=== PATIENT | male | born 1960 ===

== ENCOUNTER 2016-07-05 15:02 | Emergency (ER) | payer MEDICARE, OTHER ==
[2016-07-05 15:02] VITALS: BMI 24.4
[2016-07-05] MEDS ORDERED: Naloxone 0.4 mg/ml Inj (Adult) IV ONE (15:38)
[2016-07-05 16:11] LABS: BASO % 0.2 % (0.0-2.0); EOS # 0.1 K/uL (0.0-0.7); EOS % 0.6 % (0.0-4.0); HEMATOCRIT 41.3 % (35.0-51.0); LYMPH # 0.6 K/uL (1.0-4.3); LYMPH % 3.9 % (20.0-40.0); MEAN CORPUSCULAR HEMOGLOBIN 27.8 pg (27.0-31.0); MEAN CORPUSCULAR HGB CONC 32.7 g/dL (33.0-37.0); MEAN PLATELET VOLUME 7.4 fL (7.2-11.7); MONO # 0.6 K/uL (0.0-0.8); MONO % 3.9 % (0.0-10.0); PLATELET COUNT 240 K/uL (130-400); WHITE BLOOD COUNT 15.9 K/uL (4.8-10.8)
[2016-07-05 16:15] LABS: ALB/GLOB RATIO 1.3 (1.0-2.1); ALCOHOL SERUM < 10 mg/dl (0-10); ALKALINE PHOSPHATASE 58 U/L (38-126); ALT/SGPT 40 U/L (21-72); AST/SGOT 36 U/L (17-59); BILIRUBIN,TOTAL 0.6 mg/dL (0.2-1.3); BLOOD UREA NITROGEN 22 mg/dL (9-20); CALCIUM 8.3 mg/dl (8.6-10.4); CARBON DIOXIDE 23 mmol/L (22-30); CHLORIDE 99 mmol/L (98-107); GFR AFRICAN-AMERICAN > 60; GLUCOSE,RANDOM 222 mg/dL (75-110); POTASSIUM 4.1 mmol/L (3.6-5.2); SODIUM 135 mmol/L (132-148); TOTAL PROTEIN 7.3 g/dL (6.3-8.3)
[2016-07-05] MEDS ORDERED: Naloxone 0.4 mg/ml Inj (Adult) ONE (16:18)
--- NOTE | 2016-07-05 16:20 | CT ---
PROCEDURE: CT HEAD WITHOUT CONTRAST. HISTORY: Overdose COMPARISON: 02/20/2015 TECHNIQUE: Axial computed tomography images were obtained through the head/brain without intravenous contrast. Radiation dose: Total exam DLP = 1307 mGy-cm. This CT exam was performed using one or more of the following dose reduction techniques: Automated exposure control, adjustment of the mA and/or kV according to patient size, and/or use of iterative reconstruction technique. FINDINGS: HEMORRHAGE: No intracranial hemorrhage. BRAIN: No mass effect or edema. No atrophy or chronic microvascular ischemic changes. VENTRICLES: Unremarkable. No hydrocephalus. CALVARIUM: Unremarkable. PARANASAL SINUSES: There currently less pronounced paranasal sinus inflammatory changes. Leftward nasal septal deviation noted MASTOID AIR CELLS: Unremarkable as visualized. No inflammatory changes. OTHER FINDINGS: None. IMPRESSION: No interval intracranial hemorrhage or mass effect
--- NOTE | 2016-07-05 16:42 | RAD ---
HISTORY: Overdosed COMPARISON: Chest x-ray performed 06/19/13 TECHNIQUE: Chest, one view. FINDINGS: LUNGS: No focal consolidation. Please note that chest x-ray has limited sensitivity for the detection of pulmonary masses. PLEURA: No significant pleural effusion identified. No definite pneumothorax . CARDIOVASCULAR: The cardiomediastinal silhouette appears within normal limits of size. OSSEOUS STRUCTURES: Acromioclavicular arthropathy. VISUALIZED UPPER ABDOMEN: Unremarkable. OTHER FINDINGS: None. IMPRESSION: No focal consolidation, significant pleural effusion, or definite pneumothorax identified.
--- NOTE | 2016-07-05 16:57 | C.PDOC ---
History Of Present Illness A 56 y/o male with a Hx of schizophrenia, brought in by EMS found being asleep in a park [place]. Pt had been given Narcan by EMS and became immediately arousable. Pt denies alcohol, drug abuse, suicidal or homicidal ideation, or any complaints at this time. Pt notes being homeless. later pt admits to intranasal heroine abuse. Time Seen by Provider: 07/05/16 15:19 Chief Complaint (Nursing): Substance Abuse History Per: Patient History/Exam Limitations: no limitations Onset/Duration Of Symptoms: Hrs Current Symptoms Are (Timing): Still Present Suicide/Self Injury Attempted (Context): None Modifying Factor(s): None Severity: Mild Associated Symptoms: denies: Suicidal Thoughts, Suicidal Plan Additional History Per: Patient Past Medical History Reviewed: Historical Data, Nursing Documentation, Vital Signs Vital Signs: Last Vital Signs Temp 97.5 F L 07/05/16 15:15 Pulse 66 07/05/16 17:00 Resp 14 07/05/16 17:00 BP 97/60 L 07/05/16 17:25 Pulse Ox 98 07/05/16 17:37 - Medical History PMH: Anxiety, Arthritis, Back Problems, Bipolar Disorder, Depression, HTN, Paranoia, Schizophrenia Denies: Diabetes, Hepatitis, HIV, Chronic Kidney Disease, Seizures, Sexually Transmitted Disease - [facility] Procedures INDIVID PSYCHOTHERAP NEC (10/27/14) OTHER GROUP THERAPY (04/28/14) PSYCHIA INTERV/EVAL NEC (09/12/13) PSYCHIAT DRUG THERAP NEC (11/10/13) Family History: States: Unknown Family Hx - Social History Hx Tobacco Use: Yes Hx Alcohol Use: Yes (DENIED) Hx Substance Use: No (DENIED) - Immunization History Hx Tetanus Toxoid Vaccination: No Hx Influenza Vaccination: No Hx Pneumococcal Vaccination: Yes Review Of Systems Except As Marked, All Systems Reviewed And Found Negative. Constitutional: Negative for: Other (Alcohol or narcotic use) Psych: Negative for: Suicidal ideation Physical Exam - Physical Exam Appears: Non-toxic, No Acute Distress, Other (Hypersomnolent. No trauma) Skin: Warm, Dry Head: Atraumatic, Normacephalic Eye(s): bilateral: Other (Pinpoint pupils) Cardiovascular: Rhythm Regular, No Murmur Respiratory: Normal Breath Sounds, No Rales, No Rhonchi, No Wheezing Neurological/Psych: No Other (No focal deficit) ED Course And Treatment - Laboratory Results Result Diagrams: 07/05/16 15:51 07/05/16 15:51 Lab Interpretation: Abnormal (mild leukocytosis, tox + cocaine/opiates.) ECG: Interpreted By Me ECG Rhythm: Sinus Rhythm ECG Interpretation: Normal Rate From EC O2 Sat by Pulse Oximetry: 98 (RA) Pulse Ox Interpretation: Normal - Radiology CXR: Interpreted by Me CXR Interpretation: Yes: No Acute Disease - Other Rad head CT X-Ray: Interpreted by Me, Read By Radiologist (neg) Reevaluation Time: 17:35 Reassessment Condition: Improved Critical Care Time - Critical Care Note Total Time (in mins): 90 Documented critical care: time excludes all time spent performing seperately billable procedures. Medical Decision Making Medical Decision Making: Plans: -EKG -Narcan -IV fluids -Blood labs -Reassess and disposition 1600: Narcan IV was given to Pt and he became noticeably more arousable though nauseated and vomiting. Zofran and IV NS ordered 1700: nausea treated, admits to intranasal heroine abuse. Denies IVDA mild leukocytosis of ? etiology- prob related to vomiting. no reasonable source of infection noted. no IVDA, no fevers. Disposition Doctor Will See Patient In The: Office Counseled Patient/Family Regarding: Studies Performed, Diagnosis - Disposition Disposition: HOME/ ROUTINE Disposition Time: 17:36 Condition: GOOD - Clinical Impression Clinical Impression: Heroin abuse - Scribe Statement The provider has reviewed the documentation as recorded by the Scribe Geni pratt All medical record entries made by the Danikaibsteve were at my direction and personally dictated by me. I have reviewed the chart and agree that the record accurately reflects my personal performance of the history, physical exam, medical decision making, and the department course for this patient. I have also personally directed, reviewed, and agree with the discharge instructions and disposition.
[2016-07-05] MEDS ORDERED: Sodium Chloride 0.9% 1,000 ML IV ONE (16:59)
[2016-07-05] MEDS ORDERED: Sodium Chloride 0.9% 1,000 ML ONE (17:01)
[2016-07-05 18:02] LABS: EOSINOPHIL 1 % (0-4); NEUTROPHIL 77 % (50-75); TOTAL CELLS COUNTED 100
[2016-07-05 18:26] VITALS: BP 100/61; PULSE 68; RESP 18; TEMP 98.2; O2SAT 96
--- NOTE | 2016-07-09 11:38 | CARD ---
APPROVED REPORT EKG Measurement Heart [id number] <Conclusion> Normal sinus rhythm Normal ECG
== END 2016-07-05 18:00 | disposition home or self-care (01) ==
LOC: C.ER 15:02
DX: F11.10 Opioid abuse, uncomplicated (principal)
CPT/HCPCS: 70450; 71010; 80053; 82948; 85025; 93005; 96361; 96374; 96375; 99285; G0480; J2310; J2405; J7040

== ENCOUNTER 2018-03-02 22:32 | Inpatient (IN) | payer MEDICARE, OTHER ==
[2018-03-02 22:33] VITALS: BMI 24.4
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
[2018-03-02 23:28] LABS: BASO # 0.1 K/uL (0.0-0.2); BASO % 0.7 % (0.0-2.0); EOS # 0.3 K/uL (0.0-0.7); EOS % 3.1 % (0.0-4.0); LYMPH # 1.6 K/uL (1.0-4.3); MEAN CELL VOLUME 87.3 fL (80.0-94.0); MEAN CORPUSCULAR HEMOGLOBIN 30.2 pg (27.0-31.0); MEAN CORPUSCULAR HGB CONC 34.5 g/dL (33.0-37.0); MEAN PLATELET VOLUME 6.6 fL (7.2-11.7); MONO # 0.8 K/uL (0.0-0.8); MONO % 8.7 % (0.0-10.0); NEUT # 6.7 K/uL (1.8-7.0); NEUT % 70.5 % (50.0-75.0); RBC 4.64 Mil/uL (4.40-5.90); RED CELL DISTRIBUTION WIDTH 13.1 % (11.5-14.5); WHITE BLOOD COUNT 9.5 K/uL (4.8-10.8)
[2018-03-02 23:39] LABS: URINE BILIRUBIN NEGATIVE (NEGATIVE); URINE BLOOD NEGATIVE (NEGATIVE); URINE CLARITY Clear (Clear); URINE COLOR Yellow (YELLOW); URINE GLUCOSE (UA) NORMAL (Normal); URINE LEUKOCYTE ESTERASE NEG Leu/uL (Negative); URINE PROTEIN NEGATIVE (NEGATIVE)
[2018-03-02 23:42] LABS: ALB/GLOB RATIO 1.3 (1.0-2.1); ALBUMIN 4.3 g/dL (3.5-5.0); ALT/SGPT 35 U/L (21-72); AST/SGOT 41 U/L (17-59); BLOOD UREA NITROGEN 18 mg/dL (9-20); CALCIUM 8.9 mg/dl (8.6-10.4); GFR NON-AFRICAN AMERICAN > 60
[2018-03-02 23:58] LABS: BARBITURATES, UR NEGATIVE (NEGATIVE); BENZODIAZEPINES, UR NEGATIVE (NEGATIVE); OPIATES, UR NEGATIVE (NEGATIVE); PHENCYCLIDINE, UR NEGATIVE (NEGATIVE)
--- NOTE | 2018-03-03 02:50 | PCM.BM ---
<James Cortez - Last Filed: 03/03/18 02:47> Treatment Plan Problems - Problems identified on initial assessmt Altered Thought Process Date Initiated: 03/03/18 Time Initiated: 01:35 Assessment reference: NA Status: Active Auditory Hallucinations Date Initiated: 03/03/18 Time Initiated: 01:35 Assessment reference: NA Status: Active Treatment assets and liabiliti Patient Assests: cooperative, ADL independent, negotiates basic needs Patient Liabilities: live alone - Milieu Protocol Maintain good personal hygiene: daily Encourage regular showers, daily Remind patient to perform daily oral care, daily Assist patient to perform ADL's Conduct patient checks and document Observation sheet: Q15 minutes Maintain personal safety: every shift Educate patient to report safety concerns to staff, every shift Monitor environment for contraband/sharps Medication safety: Monitor for expected outcome, potential side effects: every shift, Assess barriers to learning: every shift, Assess readiness for medication education: every shift <Chrissie Madison - Last Filed: 03/03/18 11:28> - Diagnosis (1) Schizophrenia Status: Acute Interventions: 03/03/18 11:28 * Assess/adjust medications daily and /or as needed * See patient on an individual basis 7x/week to assess status of hallucinations * Discuss risks, benefits, side effects and alternatives of medications * <Molly Brown - Last Filed: 03/03/18 13:47> Family Contact Family involvement: Famliy/SO not involved - Goals for Treatment Patient goals for treatment: "I don't know." Discharge/Continuing Care - Education Needs Education Needs: Patient Medication, Patient Coping Skills - Discharge Discharge Criteria: Tolerates medication w/o severe side effects, Reduction of target symptoms Discharge to:: Home - Treatment Team Participation Discussed with Family/SO: No Was Patient/Family/SO present at Treatment Team Meeting: Yes
--- NOTE | 2018-03-03 09:51 | PCM.PSYCH ---
Initial Psychiatric Evaluation - Initial Psychiatric Evaluation Type of Admission: Voluntary Legal Status: Capacity Chief Complaint (in patient's own words): I was hearing voices.' History of Present Illness and Precipitating Events: This is a 58 years old male, who was escorted to the ED by the ambulance in a disorganized and internally preoccupied state. Patient has a history of multiple inpatient psychiatric hospitalizations. As pe r the hospital record, he was discharged from [facility] almost 3 years ago. Patient appeared very disorganized and internally preoccupied throughout the interview. He remained a poor historian. He was superficially cooperative but guarded about the details. He appeared disheveled and unkempt. When asked what brought him to the hospital, patient started making bizarre statements that I was born in [place], they are trying to kill me, Frankenstein..... He continued to mumble. Patient appeared very delusional paranoid. As per the staff, since last night, he remained disorganized and was found responding to internal stimuli. Toxicology is positive for marijuana. However patient denies any drinking or any drugs. PMH: None reported Current Medications: Active Medications Generic Name Dose Route Start Last Admin Trade Name Freq PRN Reason Stop Dose Admin Benztropine Mesylate 1 mg 03/03/18 10:00 Cogentin PO BID BRITTANY Haloperidol 5 mg 03/03/18 10:00 Haldol PO BID BRITTANY Influenza Virus Vaccine 60 mcg 03/05/18 10:00 Flucelvax Quad [id number] Syr IM 03/05/18 10:01 .ONCE ONE Past Psychiatric History - Past Psychiatric History Previous Treatment History: Inpatient Pertinent Medical Hx (Current Medical&Sleep Prob, Allergies): Allergies Allergy/AdvReac Type Severity Reaction Status Date / Time No Known Allergies Allergy Verified 06/01/15 18:35 Benztropine [Benztropine Mesylate] 2 mg PO BID 09/07/15 Haloperidol [Haldol] 5 mg PO BID 09/07/15 Naloxone HCl [Narcan] 4 mg NS ONCE PRN #1 spray 07/05/16 Review of Systems - Review of Systems All systems: reviewed and no additional remarkable complaints except - Psychiatric Psychiatric: Anxiety, Auditory Hallucinations, Hallucinations, Irritability, Paranoia Mental Status Examination - Personal Presentation Personal Presentation: Looks stated age - Affect Affect: Broad - Motor Activity Motor Activity: Psychomotor Agitation - Reliability in Providing Information Reliability in Providing Information: Poor, due to alteration in thoughts, Poor, due to altered mood - Speech Speech: Disorganized - Mood Mood: Depressed, Anxious - Formal Thought Process Formal Thought Process: Hallucinations, Delusions, Paranoia, Loosening of associations - Hallucinations/Delusions Hallucinations: Visual, Auditory Delusions: Persecution - Obsessions/Compulsions Obsessions: No Compulsions: No - Cognitive Functions Orientation: Person, Place, Situation, Time Sensorium: Alert Attention/Concentration: Attentive Abstract Thinking: [place] Estimate of Intelligence: Below average Judgement: Imparied, as evidence by: Poor judgement, Imparied, as evidence by: Lack of insight into illness - Risk Risk: Diminished functioning - Limitations Limitations: Living alone DSM 5 DX - DSM 5 DSM 5 Diagnosis: Schizoaffective disorder bipolar type - Recommended/Plan of Treatment Treatment Recommendations and Plan of Treatment: Schizoaffective disorder bipolar type CBT Psychoeducation Supportive therapy and group therapy Haldol 5 mg p.o. twice daily Cogentin 1 mg p.o. twice daily Trazodone 50 mg p.o. nightly
[2018-03-04] MEDS: guaiFENesin DM 200 mg-20 mg/10 ml UD PO PRN (02:44)
[2018-03-04 06:53] VITALS: O2SAT 96
--- NOTE | 2018-03-04 12:04 | PCM.PYCHPN ---
Psychiatric Progress Note - Psychiatric Progress Note Patient seen today, length of contact: 15 min Patient Chief Complaint: I was hearing voices.' Problems Identified/Issues Discussed: patient was seen and evaluated, chart reviewed and discussed with staff. Patient remained disorganized and internally preoccupied. At times he responds to the internal stimuli. He still appears paranoid and delusional. Per staff he remained calm, cooperative and redirectable yesterday. He has started taking medications but he needs more time to stabilize. Psychotherapy was given. Medication Change: Yes Medical Record Reviewed: Yes Mental Status Examination - Cognitive Function Orientation: Person, Place, Situation, Time Memory: Intact Attention: Poor Concentration: Poor Association: Loose Fund of Knowledge: Poor - Mood Mood: Depressed, Anxious - Affect Affect: Broad - Formal Thought Process Formal Thought Process: Hallucinations, Delusions, Paranoia, Loosening of associations - Suicidal Ideation Suicidal Ideation: No - Homicidal Ideation Homicidal Ideation: No Goal/Treatment Plan - Goal/Treatment Plan Need for Continued Stay: Severe depression anxiety, Severe functional impairment Progress Toward Problem(s) and Goals/Treatment Plan: Schizoaffective disorder bipolar type CBT Psychoeducation Supportive therapy and group therapy Haldol 5 mg p.o. twice daily Cogentin 1 mg p.o. twice daily Trazodone 50 mg p.o. nightly
[2018-03-05] MEDS ORDERED: Influenza Vaccine 60 mcg/0.5 mL SYR (4YR UP) IM ONE (10:00)
--- NOTE | 2018-03-05 12:58 | PCM.PYCHPN ---
Psychiatric Progress Note - Psychiatric Progress Note Patient seen today, length of contact: 15 min Patient Chief Complaint: I am feeling little better.' Problems Identified/Issues Discussed: patient was seen and evaluated, chart reviewed and discussed with staff. As per staff, patient appears little better than before. Patient reports some improvement in his paranoia and he appears more organized and less internally preoccupied than before. He still appears somewhat paranoid and delusional. Per staff he remained calm, cooperative and redirectable yesterday. He is taking medications but denies any side effects. Symptoms are improving gradually and he needs more time to stabilize. Psychotherapy was given. Medication Change: Yes Medical Record Reviewed: Yes Mental Status Examination - Cognitive Function Orientation: Person, Place, Situation, Time Memory: Intact Attention: WNL Concentration: WNL Association: Loose Fund of Knowledge: Poor - Mood Mood: Depressed, Anxious - Affect Affect: Broad - Formal Thought Process Formal Thought Process: Hallucinations, Delusions, Paranoia, Loosening of as sociations - Suicidal Ideation Suicidal Ideation: No - Homicidal Ideation Homicidal Ideation: No Goal/Treatment Plan - Goal/Treatment Plan Need for Continued Stay: Severe depression anxiety, Severe functional impairment Progress Toward Problem(s) and Goals/Treatment Plan: Schizoaffective disorder bipolar type CBT Psychoeducation Supportive therapy and group therapy Haldol 5 mg p.o. daily Haldol 10 mg p.o. nightly Cogentin 1 mg p.o. twice daily Trazodone 50 mg p.o. nightly
[2018-03-08] MEDS: guaiFENesin DM 200 mg-20 mg/10 ml UD PO PRN (18:40)
--- NOTE | 2018-03-09 23:09 | PCM.PYCHPN ---
Psychiatric Progress Note - Psychiatric Progress Note Patient seen today, length of contact: 15 min Medication Change: Yes Medical Record Reviewed: Yes Mental Status Examination - Cognitive Function Orientation: Person, Place, Situation, Time Memory: Intact Attention: WNL Concentration: WNL Association: Loose Fund of Knowledge: Poor - Mood Mood: Depressed, Anxious - Affect Affect: Broad - Formal Thought Process Formal Thought Process: Hallucinations, Delusions, Paranoia, Loosening of associations - Suicidal Ideation Suicidal Ideation: No - Homicidal Ideation Homicidal Ideation: No Goal/Treatment Plan - Goal/Treatment Plan Need for Continued Stay: Severe depression anxiety, Severe functional impairment
[2018-03-10 06:06] VITALS: BP 116/73; PULSE 70; RESP 20; TEMP 97.7
--- NOTE | 2018-03-10 10:02 | PCM.PYCHDC ---
Mental Status Examination - Mental Status Examination Orientation: Person, Place, Situation, Time Memory: Intact Mood: Neutral Affect: Constricted Speech: Soft Attention: WNL Concentration: WNL Association: WNL Fund of Knowledge: WNL Formal Thought Process: No Impairment Description of patient's judgement and insight: good, fair Psychotic Thoughts and Behaviors: denies any AVH Suicidal Ideation: No Current Homicidal Ideation?: No Discharge Summary - Discharge Note Reason for Hospitalization: This is a 58 years old male, who was escorted to the ED by the ambulance in a disorganized and internally preoccupied state. Patient has a history of multiple inpatient psychiatric hospitalizations. As per the hospital record, he was discharged from [facility] almost 3 years ago. Patient appeared very disorganized and internally preoccupied throughout the interview. He remained a poor historian. He was superficially cooperative but guarded about the details. He appeared disheveled and unkempt. When asked what brought him to the hospital, patient started making bizarre statements that I was born [place], they are trying to kill me, [place]..... He continued to mumble. Patient appeared very delusional paranoid. As per the staff, since last night, he remained disorganized and was found responding to internal stimuli. Toxicology is positive for marijuana. However patient denies any drinking or any drugs. Consultations:: List each consultation separately and include: 1. Reason for request. 2. Findings. 3. Follow-up Summary of Hospital Course include:: 1. Description of specific treatment plan utilized for patients during their course of treatmen. 2. Summarize the time- course for resolution of acute symptoms and/or regressed behaviors. 3. Describe issues identified and worked on during hospitalization. 4. Describe medication utilized. 5. Describe medical problems identified and treated. 6. Reassessment of suicide risk Summary of Hospital Course: This is a 58 years old male, who was escorted to the ED by the ambulance in a disorganized and internally preoccupied state. Patient has a history of multiple inpatient psychiatric hospitalizations. As per the hospital record, he was discharged from [facility] almost 3 years ago. Patient appeared very disorganized and internally preoccupied throughout the interview. He remained a poor historian. He was superficially cooperative but guarded about the details. He appeared disheveled and unkempt. When asked what brought him to the hospital, patient started making bizarre statements that I was born in [place], they are trying to kill me, [place]..... He continued to mumble. Patient appeared very delusional paranoid. As per the staff, since last night, he remained disorganized and was found responding to internal stimuli. Toxicology is positive for marijuana. However patient denies any drinking or any drugs. PMH: None reported - Diagnosis (1) Schizophrenia Current Visit: Yes Status: Acute - Final Diagnosis (DSM 5) Condition upon Discharge: STABLE DSM 5: Schizoaffective disorder bipolar type Disposition: HOME/ ROUTINE Follow-up Treatment Plan: Schizoaffective disorder bipolar type CBT Psychoeducation Supportive therapy and group therapy Haldol 5 mg p.o. daily Haldol 10 mg p.o. nightly Cogentin 1 mg p.o. twice daily Trazodone 50 mg p.o. nightly Prescriptions/Medication Reconciliation: Benztropine [Cogentin] 1 mg PO BID #60 tab Gabapentin [Neurontin] 100 mg PO BID #60 cap Haloperidol [Haldol] 10 mg PO BID #60 tab traZODone [Desyrel] 50 mg PO HS PRN #30 tab PRN Reason: Insomnia - Smoking Cessation Smoking Cessation Medication prescribed: No - Antipsychotic Medications Pt discharged on 2 or more routine antipsychotic medications: No
== END 2018-03-10 13:07 | disposition home or self-care (01) | DRG 885 ==
LOC: C.ER 22:32 → C.5E 03-03 00:52
PROC: GZ3ZZZZ Medication Management (ICD-10-PCS; principal; 2018-03-03)
PROC: GZHZZZZ Group Psychotherapy (ICD-10-PCS; 2018-03-03)
PROC: GZ56ZZZ Individual Psychotherapy, Supportive (ICD-10-PCS; 2018-03-03)
DX: F25.0 Schizoaffective disorder, bipolar type (principal); I10 Essential (primary) hypertension; F17.210 Nicotine dependence, cigarettes, uncomplicated

== ENCOUNTER 2018-06-11 19:51 | Inpatient (IN) | payer MEDICARE, MEDICAID ==
[2018-06-11 19:51] VITALS: BMI 24.4
--- NOTE | 2018-06-11 20:57 | C.PDOC ---
History Of Present Illness 58 year old male presents to the ED with no specific complaints. When asked patient states he is here "for X-Ray". Patient actively talking to himself while in the ED. Patient denies any medical complaints at this time. Chief Complaint (Nursing): Headache History Per: Patient History/Exam Limitations: no limitations Current Symptoms Are (Timing): Gone Preceeding Symptoms: None Recent travel outside of the [place]: No Additional History Per: Patient Past Medical History Reviewed: Historical Data, Nursing Documentation, Vital Signs Vital Signs: Last Vital Signs Temp 97.9 F 06/11/18 20:18 Pulse 70 06/11/18 20:18 Resp 14 06/11/18 20:18 BP 119/76 06/11/18 20:18 Pulse Ox 99 06/11/18 20:18 - Medical History PMH: Anxiety, Arthritis (Denied upon admission to .), Back Problems, Bipol ar Disorder, Depression (Reports history of depression), HTN (Denies upon admission to .), Paranoia, Schizophrenia Denies: Diabetes, Hepatitis, HIV, Chronic Kidney Disease, Seizures, Sexually Transmitted Disease Surgical History: No Surg Hx - [facility] Procedures GROUP PSYCHOTHERAPY (03/03/18) INDIVID PSYCHOTHERAP NEC (10/27/14) INDIVIDUAL PSYCHOTHERAPY, SUPPORTIVE (03/03/18) MEDICATION MANAGEMENT (03/03/18) OTHER GROUP THERAPY (04/28/14) PSYCHIA INTERV/EVAL NEC (09/12/13) PSYCHIAT DRUG THERAP NEC (11/10/13) Family History: States: Unknown Family Hx - Social History Hx Tobacco Use: Yes Hx Alcohol Use: Yes (Patient denied alcohol history) Hx Substance Use: No - Immunization History Hx Tetanus Toxoid Vaccination: No Hx Influenza Vaccination: No Hx Pneumococcal Vaccination: Yes Review Of Systems Constitutional: Negative for: Fever, Chills Cardiovascular: Negative for: Chest Pain Respiratory: Negative for: Shortness of Breath Gastrointestinal: Negative for: Nausea, Vomiting, Abdominal Pain Skin: Negative for: Rash Neurological: Negative for: Weakness, Numbness Psych: Negative for: Depression, Suicidal ideation Physical Exam - Physical Exam Appears: Non-toxic, No Acute Distress, Other (bizarre affect) Skin: Normal Color, Warm, Dry Head: Atraumatic, Normacephalic Eye(s): bilateral: Normal Inspection Neck: Normal ROM, Supple Chest: Symmetrical Cardiovascular: Rhythm Regular Respiratory: Normal Breath Sounds, No Rales, No Rhonchi, No Wheezing Gastrointestinal/Abdominal: Soft, No Tenderness, No Guarding, No Rebound Extremity: Normal ROM, No Tenderness, No Swelling Neurological/Psych: Oriented x3, Normal Speech, Normal Cognition Gait: Steady ED Course And Treatment - Laboratory Results Result Diagrams: 06/11/18 21:09 06/11/18 21:09 O2 Sat by Pulse Oximetry: 99 (ON RA) Pulse Ox Interpretation: Normal Medical Decision Making Medical Decision Making: Plan: * LAbs * Ua Disposition Discussed With DrThien: Radha Abel Counseled Patient/Family Regarding: Diagnosis - Disposition Disposition: HOSPITALIZED Disposition Time: 00:00 Condition: STABLE Forms: [facility] (Korean) - POA Present On Arrival: None - Clinical Impression Clinical Impression: Schizophrenia, Cannabis abuse - Scribe Statement The provider has reviewed the documentation as recorded by the Scribe Brandon Betancourt All medical record entries made by the Scribe were at my direction and personally dictated by me. I have reviewed the chart and agree that the record accurately reflects my personal performance of the history, physical exam, medical decision making, and the department course for this patient. I have also personally directed, reviewed, and agree with the discharge instructions and disposition.
[2018-06-11 21:16] LABS: BASO # 0.1 K/uL (0.0-0.2); BASO % 0.7 % (0.0-2.0); EOS # 0.3 K/uL (0.0-0.7); EOS % 3.4 % (0.0-4.0); HEMOGLOBIN 14.6 g/dL (12.0-18.0); LYMPH # 1.5 K/uL (1.0-4.3); LYMPH % 19.7 % (20.0-40.0); MEAN CELL VOLUME 86.8 fL (80.0-94.0); MEAN CORPUSCULAR HEMOGLOBIN 29.3 pg (27.0-31.0); MEAN CORPUSCULAR HGB CONC 33.7 g/dL (33.0-37.0); MEAN PLATELET VOLUME 6.7 fL (7.2-11.7); MONO # 0.5 K/uL (0.0-0.8); MONO % 7.1 % (0.0-10.0); NEUT # 5.2 K/uL (1.8-7.0); NEUT % 69.1 % (50.0-75.0); RBC 4.99 Mil/uL (4.40-5.90); RED CELL DISTRIBUTION WIDTH 13.4 % (11.5-14.5); WHITE BLOOD COUNT 7.5 K/uL (4.8-10.8)
[2018-06-11 21:18] LABS: SQUAMOUS EPITHIAL < 1 /hpf (0-5); URINE BACTERIA RARE (<OCC); URINE BILIRUBIN NEGATIVE (NEGATIVE); URINE BLOOD NEGATIVE (NEGATIVE); URINE CLARITY Clear (Clear); URINE COLOR Yellow (YELLOW); URINE GLUCOSE (UA) NORMAL (Normal); URINE LEUKOCYTE ESTERASE NEG Leu/uL (Negative); URINE PROTEIN NEGATIVE (NEGATIVE)
[2018-06-11 21:44] LABS: ALB/GLOB RATIO 1.3 (1.0-2.1); ALBUMIN 4.3 g/dL (3.5-5.0); ALT/SGPT 30 U/L (21-72); AST/SGOT 37 U/L (17-59); BLOOD UREA NITROGEN 20 mg/dL (9-20); CALCIUM 9.3 mg/dl (8.6-10.4); GFR NON-AFRICAN AMERICAN > 60
[2018-06-11 21:53] LABS: BARBITURATES, UR NEGATIVE (NEGATIVE); BENZODIAZEPINES, UR NEGATIVE (NEGATIVE); OPIATES, UR NEGATIVE (NEGATIVE); PHENCYCLIDINE, UR NEGATIVE (NEGATIVE)
[2018-06-12 00:01] VITALS: O2SAT 99
--- NOTE | 2018-06-12 02:25 | PCM.BM ---
<James Cortez - Last Filed: 06/12/18 02:22> Treatment Plan Problems - Problems identified on initial assessmt Auditory Hallucinations Date Initiated: 06/12/18 Time Initiated: 01:10 Assessment reference: NA Status: Active Altered Thought Process Date Initiated: 06/12/18 Time Initiated: 01:10 Assessment reference: NA Status: Active Treatment assets and liabiliti Patient Assests: adapts well, ADL independent, negotiates basic needs Patient Liabilities: substance abuse (Marijuana) - Milieu Protocol Maintain good personal hygiene: daily Encourage regular showers, daily Remind patient to perform daily oral care, daily Assist patient to perform ADL's Conduct patient checks and document Observation sheet: Q15 minutes Maintain personal safety: every shift Educate patient to report safety concerns to staff, every shift Monitor environment for contraband/sharps Medication safety: Monitor for expected outcome, potential side effects: every shift, Assess barriers to learning: every shift, Assess readiness for medication education: every shift <Alicia Joshi - Last Filed: 06/13/18 13:56> Family Contact Family involvement: Patient does not wish Family/SO involvement Family contact: Patient declines to allow family contact at present - Goals for Treatment Patient goals for treatment: "I want to go back to my doctor." Discharge/Continuing Care - Education Needs Education Needs: Patient Medication, Patient Diagnosis/Disease Process, Patient Coping Skills, Patient Placement options, Patient Community resources - Discharge Discharge Criteria: Free of Suicidal thoughts, Normal sleep pattern, Ability to care for self, No longer exhibiting s/s of withdrawal, Reduction of target symptoms Discharge to:: Home - Treatment Team Participation Discussed with Family/SO: No Was Patient/Family/SO present at Treatment Team Meeting: Yes <Alonzo Garzon - Last Filed: 06/17/18 17:26> - Diagnosis (1) Schizophrenia Status: Acute Interventions: 06/17/18 17:23 * Assess/adjust medications daily and /or as needed * See patient on an individual basis 7x/week to assess level of manic behaviors and stability * Discuss risks, benefits, side effects and alternatives of medication (2) Cannabis withdrawal Status: Acute Interventions: 06/17/18 17:25 * Assess 7x/week regarding severity of withdrawal * Educate regarding risks, benefits, side effects and alternatives of medications * Use Motivational Interviewing for abstinence * Use CBT for relapse prevention * Medication management for withdrawal symptoms * Encourage medication assisted treatment (3) Cannabis use disorder, severe, dependence Status: Acute Interventions: 06/17/18 17:25 * Assess 7x/week regarding severity of withdrawal * Educate regarding risks, benefits, side effects and alternatives of medications * Use Motivational Interviewing for abstinence * Use CBT for relapse prevention * Medication management for withdrawal symptoms * Encourage medication assisted treatment
--- NOTE | 2018-06-12 17:03 | PCM.PSYCH ---
Initial Psychiatric Evaluation - Initial Psychiatric Evaluation Type of Admission: Voluntary Legal Status: Capacity Chief Complaint (in patient's own words): I need x-rays for my head. It is hurting for last 4 days. History of Present Illness and Precipitating Events: Patient is a 58 years old, male with history of schizophrenia, noncompliant with treatment was admitted due to disorganized and bizarre behavior. Patient has history of multiple inpatient psychiatric hospitalizations. Patient appeared very disorganized and internally preoccupied throughout the interview. He is a poor historian. He was superficially cooperative but guarded about the details. He appeared disheveled and unkempt. When asked what brought him to the hospital, patient started making bizarre statements thatI need x-ray for my head. It is hurting for last 4 days. I also need operation on my back. Patient appeared very delusional & paranoid. As per the staff, patient remained disorganized and was found responding to internal stimuli. Toxicology is positive for Cannabis. Patient reports smoking 10 cigarettes daily. Refused to take nicotine patch. Patient was born in [place], moved to [facility] at 6 years of age. Has high school graduation. On disability. Lives alone. Never and has one grownup son. Current Medications: Active Medications Generic Name Dose Route Start Last Admin Trade Name Freq PRN Reason Stop Dose Admin Benztropine Mesylate 0.5 mg 06/12/18 10:00 06/12/18 09:05 Cogentin PO 0.5 mg BID BRITTANY Administration Gabapentin 100 mg 06/12/18 18:00 Neurontin PO BID BRITTANY Haloperidol 5 mg 06/12/18 10:00 06/12/18 09:05 Haldol PO 5 mg BID BRITTANY Administration Haloperidol 5 mg 06/12/18 07:20 06/12/18 07:25 Haldol PO 5 mg Q6 PRN Administration Agitation Pneumococcal Polyvalent Vaccine 0.5 ml 06/15/18 10:00 Pneumovax 23 Vaccine IM 06/15/18 10:01 .ONCE ONE Trazodone HCl 50 mg 06/12/18 01:30 06/12/18 01:35 Desyrel PO 50 mg HS BRITTANY Administration Past Psychiatric History - Past Psychiatric History Previous Treatment History: Inpatient At [facility]: [facility], [facility] History of Abuse: None reported History of ETOH/Drug Use: See HPI History of Family Illness: None reported Pertinent Medical Hx (Current Medical&Sleep Prob, Allergies): Allergies Allergy/AdvReac Type Severity Reaction Status Date / Time No Known Allergies Allergy Verified 06/11/18 20:20 Benztropine [Cogentin] 1 mg PO BID #60 tab 03/10/18 Haloperidol [Haldol] 10 mg PO BID #60 tab 03/10/18 traZODone [Desyrel] 50 mg PO HS PRN #30 tab 03/10/18 Review of Systems - Psychiatric Psychiatric: As Per HPI, Depression, Hallucinations, Paranoia, Other Mental Status Examination - Personal Presentation Personal Presentation: Looks stated age - Affect Affect: Blunted - Motor Activity Motor Activity: Psychomotor Retardation - Reliability in Providing Information Reliability in Providing Information: Poor, due to alteration in thoughts - Speech Speech: Relevant - Mood Mood: Depressed - Formal Thought Process Formal Thought Process: Paranoia, Loosening of associations, Flight of ideas - Hallucinations/Delusions Hallucinations: Other (Internally preoccupied) - Cognitive Functions Orientation: Person, Place, Time Sensorium: Alert Attention/Concentration: Attentive Estimate of Intelligence: Below average Judgement: Intact, as evidence by: Insight regarding need for hospitalization Memory: Recent imparied as evidence by:Inability to complete 3/3 object recall, Remote impaired as evidenced by: Inability to recall historical events - Risk Risk: Diminished functioning - Strength & Assets Inventory Strength & Assets Inventory: Other - Limitations Limitations: Living alone DSM 5 DX - DSM 5 DSM 5 Diagnosis: Schizophrenia. Cannabis withdrawal. Cannabis use disorder severe. - Recommended/Plan of Treatment Treatment Recommendations and Plan of Treatment: Patient education. Supportive therapy. Will start his discharge medications including Haldol. Other PRN medications. Projected ELOS: 8-10 days - Smoking Cessation Smoking Cessation Initiated: No Reason for not providing: Patient refused
--- NOTE | 2018-06-13 22:28 | PCM.PYCHPN ---
Psychiatric Progress Note - Psychiatric Progress Note Patient seen today, length of contact: 15 minutes Patient Chief Complaint: Feeling little better, but still I need x-rays for my head. Problems Identified/Issues Discussed: Patient seen, chart reviewed, case discussed with the staff. Patient is related to illness and treatment were discussed with the patient and staff. Patient was evaluated with the team. Reported compliant with treatment with no adverse effects. Tolerating treatment very well. Reported feeling little better. Mood reported as okay. Affect appropriate, blunted affect. Patient was little curlier but still disorganized disheveled and bizarre. Aftercare discussed with the patient. Patient needs more time for stabilization. Patient denied any suicidal or homicidal ideation at the time of evaluation. Medical Problems: None reported Diagnostic Results: Reviewed Medication Change: No Medical Record Reviewed: Yes Mental Status Examination - Cognitive Function Orientation: Person, Place, Time Memory: Intact Attention: WNL Concentration: WNL Association: Loose Fund of Knowledge: Poor Decription of patient's judgement and insights: Fair - Mood Mood: Depressed - Affect Affect: Blunted - Speech Speech: Appropriate - Formal Thought Process Formal Thought Process: Paranoia, Loosening of associations, Flight of ideas - Suicidal Ideation Suicidal Ideation: No - Homicidal Ideation Homicidal Ideation: No Goal/Treatment Plan - Goal/Treatment Plan Need for Continued Stay: Remain at risks for inpatient hospitalization, Discharge may exacerbated symptoms, Severe functional impairment Progress Toward Problem(s) and Goals/Treatment Plan: Patient education. Supportive therapy. CBT for relapse prevention. [place] for abstinence. Will start his discharge medications including Haldol. Other PRN medications. Estimated Date of D/C: 06/20/18 - Smoking Cessation Smoking Cessation Initiated: No
--- NOTE | 2018-06-14 23:20 | PCM.PYCHPN ---
Psychiatric Progress Note - Psychiatric Progress Note Patient seen today, length of contact: 15 min Patient Chief Complaint: "I'm tired" Problems Identified/Issues Discussed: The pt is seen, chart reviewed, case discussed with staff. The pt is compliant with medications and reports no side-effects. Symptoms are improving but needs more time to stabilize. Pt isolates self a lot. He is irate Support given, psycho-education provided. Medication Change: Yes (meds change daily) Medical Record Reviewed: Yes Mental Status Examination - Cognitive Function Orientation: Person, Place, Situation, Time Memory: Intact Attention: Poor Concentration: Poor Association: WNL Fund of Knowledge: Poor - Mood Mood: Depressed - Affect Affect: Blunted - Speech Speech: Appropriate - Formal Thought Process Formal Thought Process: Paranoia, Loosening of associations, Flight of ideas - Suicidal Ideation Suicidal Ideation: No - Homicidal Ideation Homicidal Ideation: No Goal/Treatment Plan - Goal/Treatment Plan Need for Continued Stay: Discharge may exacerbated symptoms, Severe functional impairment Progress Toward Problem(s) and Goals/Treatment Plan: Continue medications Support and psychoeducation daily Attend groups and activities daily After care planning by LIDIA
[2018-06-15] MEDS ORDERED: Pneumococcal 23-Valent Vaccine IM ONE (10:00)
[2018-06-15] MEDS: Pantoprazole 40 mg EC Tab PO SCH (14:26)
[2018-06-16] MEDS: Pantoprazole 40 mg EC Tab PO SCH (09:34)
--- NOTE | 2018-06-16 12:33 | PCM.PYCHPN ---
Psychiatric Progress Note - Psychiatric Progress Note Patient seen today, length of contact: 15 minutes Patient Chief Complaint: I am feeling little better. Can you order x-rays for my head and right arm. Problems Identified/Issues Discussed: Patient seen, chart reviewed, case discussed with the staff. Patient is related to illness and treatment were discussed with the patient and staff. Patient was evaluated with the team. Reported compliant with treatment with no adverse effects. Tolerating treatment very well. Reported feeling little better. Mood reported as okay. Affect inappropriate, blunted affect. Patient was little clearer but still disorganized, disheveled and bizarre. Staff reported that patient was found talking to someone. Discussed with patient about this issue. Patient reported that the spirits are bothering him all the time and he talks to them. Patient still convinced that there is something wrong with his head and right arm and is requesting for x-rays. Will increase the dose of Haldol to 10 mg twice a day. Aftercare discussed with the patient. Patient needs more time for stabilization. Patient denied any suicidal or homicidal ideation at the time of evaluation. Medical Problems: None reported Diagnostic Results: Reviewed DSM 5 Symptoms Update: Some improvement with treatment. Medication Change: Yes (Dose of Haldol increased to 10 mg twice a day.) Medical Record Reviewed: Yes Mental Status Examination - Cognitive Function Orientation: Person, Place, Time Memory: Intact Attention: WNL Concentration: WNL Association: Loose Fund of Knowledge: Poor Decription of patient's judgement and insights: Fair - Mood Mood: Depressed - Affect Affect: Blunted - Speech Speech: Appropriate - Formal Thought Process Formal Thought Process: Hallucinations, Delusions, Loosening of associations, Flight of ideas - Suicidal Ideation Suicidal Ideation: No - Homicidal Ideation Homicidal Ideation: No Goal/Treatment Plan - Goal/Treatment Plan Need for Continued Stay: Remain at risks for inpatient hospitalization, Discharge may exacerbated symptoms, Severe functional impairment Progress Toward Problem(s) and Goals/Treatment Plan: Patient education. Supportive therapy. CBT for relapse prevention. [place] for abstinence. Will increase the dose of Haldol to 10 mg twice a day. Continue rest of the treatment as before. Estimated Date of D/C: 06/20/18 - Smoking Cessation Smoking Cessation Initiated: No
[2018-06-17] MEDS: Pantoprazole 40 mg EC Tab PO SCH (09:18)
--- NOTE | 2018-06-17 13:15 | PCM.PYCHPN ---
Psychiatric Progress Note - Psychiatric Progress Note Patient seen today, length of contact: 15 minutes Patient Chief Complaint: I am feeling little better. Can you order x-rays for my head and right arm. Problems Identified/Issues Discussed: Patient seen, chart reviewed, case discussed with the staff. Patient is related to illness and treatment were discussed with the patient and staff. Patient was evaluated with the team. Reported compliant with treatment with no adverse effects. Tolerating treatment very well. Reported feeling little better. Mood reported as okay. Affect inappropriate, blunted affect. Patient's thought process was little Clearer but still patient was asking for [place] for his head and arm. After increasing the dose of Haldol, patient reported feeling better. Aftercare discussed with the patient. Patient needs more time for stabilization. Patient denied any suicidal or homicidal ideation at the time of evaluation. Medical Problems: None reported Diagnostic Results: Reviewed DSM 5 Symptoms Update: Improving with treatment Medication Change: No Medical Record Reviewed: Yes Mental Status Examination - Cognitive Function Orientation: Person, Place, Time Memory: Intact Attention: WNL Concentration: WNL Association: WNL Fund of Knowledge: WNL Decription of patient's judgement and insights: Fair - Mood Mood: Depressed (Less than before.) - Affect Affect: Depressed - Speech Speech: Appropriate - Formal Thought Process Formal Thought Process: Loosening of associations - Suicidal Ideation Suicidal Ideation: No - Homicidal Ideation Homicidal Ideation: No Goal/Treatment Plan - Goal/Treatment Plan Need for Continued Stay: Remain at risks for inpatient hospitalization, Discharge may exacerbated symptoms, Severe functional impairment Progress Toward Problem(s) and Goals/Treatment Plan: Patient education. Supportive therapy. CBT for relapse prevention. [place] for abstinence. Continue treatment as before. Patient wants to have follow-up with his private psychiatrist. Estimated Date of D/C: 06/20/18 - Smoking Cessation Smoking Cessation Initiated: No
[2018-06-18] MEDS: Pantoprazole 40 mg EC Tab PO SCH (09:06)
--- NOTE | 2018-06-18 16:21 | PCM.PYCHPN ---
Psychiatric Progress Note - Psychiatric Progress Note Patient seen today, length of contact: 15 minutes Patient Chief Complaint: I am feeling better. Can you order x-rays for my head and right arm. Problems Identified/Issues Discussed: Patient seen, chart reviewed, case discussed with the staff. Patient is related to illness and treatment were discussed with the patient and staff. Patient was evaluated with the team. Reported compliant with treatment with no adverse effects. Tolerating treatment very well. Reported feeling better. Patient's thought process was little clearer but still patient was fixated for his headache and right arm surgery and was requesting for x-ray. Discussed with patient this issue in detail. Patient has small lipoma on his back. Will refer the patient to medicine after discharge from the patient. Mood reported as okay. Affect inappropriate, blunted affect. Aftercare discussed with the patient. Patient needs more time for stabilization. Patient denied any suicidal or homicidal ideation at the time of evaluation. Medical Problems: None reported Diagnostic Results: Reviewed DSM 5 Symptoms Update: Improving with treatment. Medication Change: No Medical Record Reviewed: Yes Mental Status Examination - Cognitive Function Orientation: Person, Place, Time Memory: Intact Attention: WNL Concentration: WNL Association: WNL Fund of Knowledge: [facility] Decription of patient's judgement and insights: Fair - Mood Mood: Depressed (Less than before.) - Affect Affect: Depressed - Speech Speech: Appropriate - Formal Thought Process Formal Thought Process: Loosening of associations - Suicidal Ideation Suicidal Ideation: No - Homicidal Ideation Homicidal Ideation: No Goal/Treatment Plan - Goal/Treatment Plan Need for Continued Stay: Remain at risks for inpatient hospitalization, Discharge may exacerbated symptoms, Severe functional impairment Progress Toward Problem(s) and Goals/Treatment Plan: Patient education. Supportive therapy. CBT for relapse prevention. [place] for abstinence. Continue treatment as before. Patient wants to have follow-up with his private psychiatrist. Estimated Date of D/C: 06/20/18 - Smoking Cessation Smoking Cessation Initiated: No
[2018-06-19] MEDS: Pantoprazole 40 mg EC Tab PO SCH (09:15)
--- NOTE | 2018-06-19 21:28 | PCM.PYCHPN ---
Psychiatric Progress Note - Psychiatric Progress Note Patient seen today, length of contact: 15 minutes Patient Chief Complaint: I am feeling better. Can you order x-rays for my head and right arm. Problems Identified/Issues Discussed: Patient seen, chart reviewed, case discussed with the staff. Patient is related to illness and treatment were discussed with the patient and staff. Patient was evaluated with the team. Reported compliant with treatment with no adverse effects. Tolerating treatment very well. Reported feeling better. Patient's thought process was clearer. Mood reported as okay. Affect appropriate. Aftercare discussed with the patient. Patient needs more time for stabilization. Patient denied any suicidal or homicidal ideation at the time of evaluation. Medical Problems: None reported Diagnostic Results: Reviewed DSM 5 Symptoms Update: Some improvement with treatment. Medication Change: No Medical Record Reviewed: Yes Mental Status Examination - Cognitive Function Orientation: Person, Place, Time Memory: Intact Attention: WNL Concentration: WNL Association: WNL Fund of Knowledge: WN Decription of patient's judgement and insights: Fair - Mood Mood: Depressed (Less than before.) - Affect Affect: Depressed - Speech Speech: Appropriate - Formal Thought Process Formal Thought Process: Loosening of associations - Suicidal Ideation Suicidal Ideation: No - Homicidal Ideation Homicidal Ideation: No Goal/Treatment Plan - Goal/Treatment Plan Need for Continued Stay: Remain at risks for inpatient hospitalization, Discharge may exacerbated symptoms, Severe functional impairment Progress Toward Problem(s) and Goals/Treatment Plan: Patient education. Supportive therapy. CBT for relapse prevention. [place] for abstinence. Continue treatment as before. Patient wants to have follow-up with his private psychiatrist. Estimated Date of D/C: 06/20/18 - Smoking Cessation Smoking Cessation Initiated: No
[2018-06-20 07:11] VITALS: BP 104/61; PULSE 60; RESP 18; TEMP 97.8
[2018-06-20] MEDS: Pantoprazole 40 mg EC Tab PO SCH (09:49)
== END 2018-06-20 11:08 | disposition home or self-care (01) | DRG 895 ==
LOC: C.ER 19:51 → C.5E 06-12 00:01
PROVIDERS: ADMIT Psychiatry & Neurology Psychiatry; ATTEND Psychiatry & Neurology Psychiatry
PROC: HZ52ZZZ Individual Psychotherapy for Substance Abuse Treatment, Cognitive-Behavioral (ICD-10-PCS; principal; 2018-06-12)
PROC: GZHZZZZ Group Psychotherapy (ICD-10-PCS; 2018-06-12)
PROC: HZ2ZZZZ Detoxification Services for Substance Abuse Treatment (ICD-10-PCS; 2018-06-12)
PROC: HZ59ZZZ Individual Psychotherapy for Substance Abuse Treatment, Supportive (ICD-10-PCS; 2018-06-12)
PROC: HZ56ZZZ Individual Psychotherapy for Substance Abuse Treatment, Psychoeducation (ICD-10-PCS; 2018-06-12)
PROC: HZ42ZZZ Group Counseling for Substance Abuse Treatment, Cognitive-Behavioral (ICD-10-PCS; 2018-06-12)
PROC: HZ46ZZZ Group Counseling for Substance Abuse Treatment, Psychoeducation (ICD-10-PCS; 2018-06-12)
PROC: GZ58ZZZ Individual Psychotherapy, Cognitive-Behavioral (ICD-10-PCS; 2018-06-12)
PROC: GZ56ZZZ Individual Psychotherapy, Supportive (ICD-10-PCS; 2018-06-12)
DX: F12.23 Cannabis dependence with withdrawal (principal); F20.0 Paranoid schizophrenia; F17.210 Nicotine dependence, cigarettes, uncomplicated; F31.9 Bipolar disorder, unspecified; I10 Essential (primary) hypertension; Z91.19 Patient's noncompliance with other medical treatment and regimen

== ENCOUNTER 2018-07-10 13:00 | Inpatient (IN) | payer MEDICARE, MEDICAID ==
[2018-07-10 13:07] VITALS: BMI 23.7
[2018-07-10 13:34] LABS: SQUAMOUS EPITHIAL < 1 /hpf (0-5); URINE BILIRUBIN NEGATIVE (NEGATIVE); URINE BLOOD NEGATIVE (NEGATIVE); URINE CLARITY Clear (Clear); URINE COLOR Yellow (YELLOW); URINE GLUCOSE (UA) NORMAL (Normal); URINE LEUKOCYTE ESTERASE NEG Leu/uL (Negative); URINE PROTEIN NEGATIVE (NEGATIVE)
[2018-07-10 13:46] LABS: BASO # 0.1 K/uL (0.0-0.2); BASO % 1.4 % (0.0-2.0); EOS # 0.2 K/uL (0.0-0.7); EOS % 3.4 % (0.0-4.0); LYMPH # 1.3 K/uL (1.0-4.3); MEAN CELL VOLUME 86.3 fL (80.0-94.0); MEAN CORPUSCULAR HEMOGLOBIN 29.5 pg (27.0-31.0); MEAN CORPUSCULAR HGB CONC 34.1 g/dL (33.0-37.0); MEAN PLATELET VOLUME 6.9 fL (7.2-11.7); MONO # 0.7 K/uL (0.0-0.8); MONO % 9.3 % (0.0-10.0); NEUT # 5.1 K/uL (1.8-7.0); NEUT % 68.9 % (50.0-75.0); RBC 4.28 Mil/uL (4.40-5.90); RED CELL DISTRIBUTION WIDTH 13.2 % (11.5-14.5); WHITE BLOOD COUNT 7.4 K/uL (4.8-10.8)
[2018-07-10 13:47] LABS: HEMOGLOBIN 12.6 g/dL (12.0-18.0)
[2018-07-10 13:54] LABS: BARBITURATES, UR NEGATIVE (NEGATIVE); BENZODIAZEPINES, UR NEGATIVE (NEGATIVE); OPIATES, UR NEGATIVE (NEGATIVE); PHENCYCLIDINE, UR NEGATIVE (NEGATIVE)
[2018-07-10 14:12] LABS: ALB/GLOB RATIO 1.2 (1.0-2.1); ALBUMIN 3.7 g/dL (3.5-5.0); ALT/SGPT 35 U/L (21-72); AST/SGOT 34 U/L (17-59); BLOOD UREA NITROGEN 18 mg/dL (9-20); CALCIUM 8.6 mg/dl (8.6-10.4); GFR NON-AFRICAN AMERICAN > 60
--- NOTE | 2018-07-10 15:17 | C.PDOC ---
History Of Present Illness 58 year old male presents to ED for psychiatric evaluation. Patient claims that he is hearing voices. Patient has a history of chronic schizophrenia and alcohol abuse. He has no physical complains. Patient denies suicidal ideation and homicidal ideation. Time Seen by Provider: 07/10/18 13:38 Chief Complaint (Nursing): Psychiatric Evaluation History Per: Patient History/Exam Limitations: no limitations Onset/Duration Of Symptoms: Unknown Current Symptoms Are (Timing): Still Present Suicide/Self Injury Attempted (Context): None Modifying Factor(s): Alcohol Associated Symptoms: denies: Suicidal Thoughts, Suicidal Plan Past Medical History Reviewed: Historical Data, Nursing Documentation, Vital Signs Vital Signs: Last Vital Signs Temp 97.6 F 07/10/18 13:06 Pulse 82 07/10/18 13:06 Resp 20 07/10/18 13:06 BP 102/67 07/10/18 13:06 Pulse Ox 96 07/10/18 13:06 Primary Care Provider: Non [facility] Provider, - Medical History PMH: Anxiety, Arthritis (Denied upon admission to [address] [place] [address]), Back Problems, Bipolar Disorder, Depression (Reports history of depression), Paranoia, Schizophrenia Denies: Diabetes, Hepatitis, HIV, HTN, Chronic Kidney Disease, Seizures, Sexually Transmitted Disease Surgical History: No Surg Hx - [facility] Procedures DETOXIFICATION SERVICES FOR SUBSTANCE ABUSE TREATMENT (06/12/18) GROUP GREEN END MAN FOR SUBSTANCE ABUSE TREATMENT, PSYCHOEDUCATION (06/12/18) GROUP GREEN END MAN FOR SUBSTANCE ABUSE, COGNITIVE BEHAVIORAL (06/12/18) GROUP PSYCHOTHERAPY (06/12/18) INDIV PSYCHOTHERAPY FOR SUBSTANCE ABUSE TREATMENT, SUPPORT (06/12/18) INDIV PSYCHOTHERAPY FOR SUBSTANCE ABUSE, COGNITIV BEHAVIORAL (06/12/18) INDIV PSYCHOTHERAPY FOR SUBSTANCE ABUSE, PSYCHOEDUCATION (06/12/18) INDIVID PSYCHOTHERAP NEC (10/27/14) INDIVIDUAL PSYCHOTHERAPY, COGNITIVE-BEHAVIORAL (06/12/18) INDIVIDUAL PSYCHOTHERAPY, SUPPORTIVE (06/12/18) MEDICATION MANAGEMENT (03/03/18) OTHER GROUP THERAPY (04/28/14) PSYCHIA INTERV/EVAL NEC (09/12/13) PSYCHIAT DRUG THERAP NEC (11/10/13) Family History: States: Unknown Family Hx - Social History Hx Tobacco Use: Yes Hx Alcohol Use: Yes (Hx. UDS-) Hx Substance Use: Yes (hx of alcohol) - Immunization History Hx Tetanus Toxoid Vaccination: No Hx Influenza Vaccination: No Hx Pneumococcal Vaccination: No Review Of Systems Constitutional: Negative for: Fever, Chills, Weakness Neurological: Negative for: Headache Psych: Positive for: Other (hearing voices). Negative for: Suicidal ideation Physical Exam - Physical Exam Appears: Non-toxic, No Acute Distress, Other (tall, thin male) Skin: Normal Color, Warm, Dry Head: Atraumatic, Normacephalic Neck: Normal ROM, Supple Chest: Symmetrical, No Deformity Cardiovascular: Rhythm Regular, No Murmur Respiratory: No Accessory Muscle Use, No Rales, No Rhonchi, No Wheezing Gastrointestinal/Abdominal: Soft, No Tenderness Extremity: Bilateral: Atraumatic, Normal Color And Temperature, Normal ROM Pulses: Left Radial: Normal, Right Radial: Normal Neurological/Psych: Other (calm, cooperative; awake, alert, appropriate ) ED Course And Treatment - Laboratory Results Result Diagrams: 07/10/18 13:43 07/10/18 13:43 Lab Results: Total Bilirubin 0.4 mg/dL (0.2-1.3) 07/10/18 13:43 AST 34 U/L (17-59) 07/10/18 13:43 ALT 35 U/L (21-72) 07/10/18 13:43 Alkaline Phosphatase 72 U/L (38-126) 07/10/18 13:43 Total Protein 6.8 g/dL (6.3-8.3) 07/10/18 13:43 Albumin 3.7 g/dL (3.5-5.0) 07/10/18 13:43 Globulin 3.1 gm/dL (2.2-3.9) 07/10/18 13:43 Albumin/Globulin Ratio 1.2 (1.0-2.1) 07/10/18 13:43 Urine Color Yellow (YELLOW) 07/10/18 13:28 Urine Clarity Clear (Clear) 07/10/18 13:28 Urine pH 5.0 (5.0-8.0) 07/10/18 13:28 Ur Specific [place] 1.024 (1.003-1.030) 07/10/18 13:28 Urine Protein Negative mg/dL (NEGATIVE) 07/10/18 13:28 Urine Glucose (UA) Normal mg/dL (Normal) 07/10/18 13:28 Urine Ketones Negative mg/dL (NEGATIVE) 07/10/18 13:28 Urine Blood Negative (NEGATIVE) 07/10/18 13:28 Urine Nitrate Negative (NEGATIVE) 07/10/18 13:28 Urine Bilirubin Negative (NEGATIVE) 07/10/18 13:28 Urine Urobilinogen 2.0 mg/dL (0.2-1.0) 07/10/18 13:28 Ur Leukocyte Esterase Neg Rafael/uL (Negative) 07/10/18 13:28 Urine WBC (Auto) < 1 /hpf (0-5) 07/10/18 13:28 Urine RBC (Auto) 1 /hpf (0-3) 07/10/18 13:28 Ur Squamous Epith Cells < 1 /hpf (0-5) 07/10/18 13:28 Lab Interpretation: Abnormal (tox + cocaine) O2 Sat by Pulse Oximetry: 96 (in RA) Pulse Ox Interpretation: Normal Progress Note: Labs ordered with drug screen and UA. Reevaluation Time: 15:16 Reassessment Condition: Unchanged Disposition Doctor Will See Patient In The: Hospital Counseled Patient/Family Regarding: Studies Performed, Diagnosis - Disposition Disposition: HOSPITALIZED Disposition Time: 15:17 Condition: GOOD - Clinical Impression Clinical Impression: Schizophrenia - Scribe Statement The provider has reviewed the documentation as recorded by the Scribe (Nasima Carreno) All medical record entries made by the Scribe were at my direction and personally dictated by me. I have reviewed the chart and agree that the record accurately reflects my personal performance of the history, physical exam, m edical decision making, and the department course for this patient. I have also personally directed, reviewed, and agree with the discharge instructions and disposition.
[2018-07-10 15:49] VITALS: O2SAT 96
[2018-07-10] MEDS ORDERED: Pneumococcal 23-Valent Vaccine IM ONE (16:43)
--- NOTE | 2018-07-10 17:32 | PCM.BM ---
<Raymond Lyon - Last Filed: 07/10/18 17:28> Treatment Plan Problems - Problems identified on initial assessmt Altered Thought Process Date Initiated: 07/10/18 Time Initiated: 15:45 Assessment reference: NA Status: Active Impaired Communication Date Initiated: 07/10/18 Time Initiated: 15:45 Assessment reference: NA Status: Active Suicidal Ideation Date Initiated: 07/10/18 Time Initiated: 15:45 Assessment reference: NA Status: Monitor Treatment assets and liabiliti Patient Assests: adapts well, ADL independent, negotiates basic needs Patient Liabilities: live alone, poor support system, substance abuse (Cocaine), medical problems - Milieu Protocol Maintain good personal hygiene: daily Encourage regular showers, daily Remind patient to perform daily oral care, every shift Assist patient to perform ADL's Maintain personal safety: every shift Educate patient to report safety concerns to staff, every shift Monitor environment for contraband/sharps Medication safety: Monitor for expected outcome, potential side effects: every s hift, Assess barriers to learning: every shift, Assess readiness for medication education: every shift <Molly Brown - Last Filed: 07/11/18 13:33> Family Contact Family involvement: Famliy/SO not involved - Goals for Treatment Patient goals for treatment: "I want to go back to my socially responsible investment adviser at supportive housing." Discharge/Continuing Care - Education Needs Education Needs: Patient Medication, Patient Coping Skills - Discharge Discharge Criteria: Tolerates medication w/o severe side effects, Reduction of target symptoms Discharge to:: Home - Treatment Team Participation Discussed with Family/SO: No Was Patient/Family/SO present at Treatment Team Meeting: Yes
--- NOTE | 2018-07-11 09:57 | PCM.PSYCH ---
Initial Psychiatric Evaluation - Initial Psychiatric Evaluation Type of Admission: Voluntary Legal Status: Capacity Chief Complaint (in patient's own words): I am feeling depressed and suicidal.' History of Present Illness and Precipitating Events: Patient is a 58 years old male, who is currently unemployed and homeless came to the [facility] because of depressed mood, suicidal ideation and auditory hallucinations. Patient appeared somewhat disorganized and internally preoccupied throughout the interview. He appeared disheveled and unkempt. Patient remained a poor historian. He was superficially cooperative but guarded about the details. He reports history of multiple inpatient psychiatric hospitalizations. He was just discharged from [facility] last month. As per the patient, he stopped taking medications and became increasingly depressed and started hearing voices, he became suicidal and came to the hospital to get help. He reports depressed mood, feelings of hopelessness and helplessness, poor sleep and poor appetite. He reports paranoia and visual hallucinations. He denies any irritability, agitation and racing thoughts. Urine toxicology positive for cocaine. Past medical history None reported Current Medications: Active Medications Generic Name Dose Route Start Last Admin Trade Name Freq PRN Reason Stop Dose Admin Benztropine Mesylate 1 mg 07/11/18 10:00 07/11/18 09:38 Cogentin PO 1 mg BID BRITTANY Administration Haloperidol 5 mg 07/11/18 10:00 07/11/18 09:38 Haldol PO 5 mg BID BRITTANY Administration Hydroxyzine HCl 50 mg 07/10/18 22:25 Atarax PO Q6H PRN Anxiety Ibuprofen 600 mg 07/10/18 22:25 Motrin Tab PO Q6H PRN Pain, moderate (4-7) Pneumococcal Polyvalent Vaccine 0.5 ml 07/13/18 10:00 Pneumovax 23 Vaccine IM 07/13/18 10:01 .ONCE ONE Trazodone HCl 100 mg 07/10/18 22:25 Desyrel PO HS PRN Insomnia Past Psychiatric History - Past Psychiatric History Previous Treatment History: Inpatient Pertinent Medical Hx (Current Medical&Sleep Prob, Allergies): Allergies Allergy/AdvReac Type Severity Reaction Status Date / Time No Known Allergies Allergy Verified 06/11/18 20:20 Benztropine [Cogentin] 1 mg PO BID #60 tab 03/10/18 Haloperidol [Haldol] 10 mg PO BID #60 tab 06/20/18 Review of Systems - Review of Systems All systems: reviewed and no additional remarkable complaints except - Psychiatric Psychiatric: Anxiety, Auditory Hallucinations, Irritability, Suicidal Ideation Mental Status Examination - Personal Presentation Personal Presentation: Looks stated age - Affect Affect: Constricted, Depressed - Motor Activity Motor Activity: Calm - Reliability in Providing Information Reliability in Providing Information: Good - Speech Speech: Organized - Mood Mood: Depressed, Anxious - Formal Thought Process Formal Thought Process: Hallucinations, Delusions - Hallucinations/Delusions Hallucinations: Auditory Delusions: Persecution - Obsessions/Compulsions Obsessions: No Compulsions: No - Cognitive Functions Orientation: Person, Place, Situation, Time Sensorium: Alert Attention/Concentration: Attentive Abstract Thinking: Harned Estimate of Intelligence: Below average Judgement: Imparied, as evidence by: Poor judgement, Imparied, as evidence by: Lack of insight into illness - Risk Risk: Suicidal, Diminished functioning - Limitations Limitations: Living alone DSM 5 DX - DSM 5 DSM 5 Diagnosis: Schizophrenia paranoid type continuous Cocaine use disorder mild Cannabis use disorder mild - Recommended/Plan of Treatment Treatment Recommendations and Plan of Treatment: Schizophrenia paranoid type continuous Cocaine use disorder mild Cannabis use disorder mild CBT Psychoeducation Supportive therapy and group therapy Haldol for psychosis Cogentin for EPS Trazodone for insomnia Hydroxyzine for anxiety Remeron for depression
--- NOTE | 2018-07-12 11:38 | CT ---
Date of service: 07/11/2018 PROCEDURE: CT HEAD WITHOUT CONTRAST. HISTORY: Patient has headache, hx of falls COMPARISON: None available. TECHNIQUE: Axial computed tomography images were obtained through the head/brain without intravenous contrast. Radiation dose: Total exam DLP = 1099.36 mGy-cm. This CT exam was performed using one or more of the following dose reduction techniques: Automated exposure control, adjustment of the mA and/or kV according to patient size, and/or use of iterative reconstruction technique. Please note that MRI with diffusion imaging is more sensitive in the detection of acute ischemic event. FINDINGS: HEMORRHAGE: No intracranial hemorrhage. BRAIN: No mass effect or edema. The moy-white matter differentiation appears intact. Please note that MRI with diffusion imaging is more sensitive in the detection of acute ischemic event. VENTRICLES: No hydrocephalus. CALVARIUM: Unremarkable. PARANASAL SINUSES: Mild mucosal thickening of the ethmoid air cells and bilateral frontal sinuses. MASTOID AIR CELLS: Unremarkable as visualized. No inflammatory changes. OTHER FINDINGS: None. IMPRESSION: No acute intracranial pathology identified. Mild mucosal thickening of ethmoid air cells and bilateral frontal sinuses. Preliminary impression was provided by [employer].
[2018-07-13] MEDS ORDERED: Pneumococcal 23-Valent Vaccine IM ONE (10:00)
--- NOTE | 2018-07-13 11:05 | PCM.PYCHPN ---
Psychiatric Progress Note - Psychiatric Progress Note Patient seen today, length of contact: 15 min Patient Chief Complaint: I am feeling depressed and suicidal.' Problems Identified/Issues Discussed: Patient seen and evaluated, chart reviewed and discussed with staff. Patient still reports depressed mood, at times feelings of hopelessness and helplessness. He still reports auditory hallucinations and paranoia. He remained isolative and withdrawn. He is starting medication but denies any side effects. He needs to stay longer for the stabilization of the symptoms. Supportive therapy was provided Medication Change: Yes Medical Record Reviewed: Yes Mental Status Examination - Cognitive Function Orientation: Person, Place, Situation, Time Memory: Intact Attention: WNL Concentration: Poor Association: Loose Fund of Knowledge: Poor - Mood Mood: Depressed, Anxious - Affect Affect: Constricted, Depressed - Speech Speech: Soft - Formal Thought Process Formal Thought Process: Hallucinations, Delusions, Paranoia - Suicidal Ideation Suicidal Ideation: No - Homicidal Ideation Homicidal Ideation: No Goal/Treatment Plan - Goal/Treatment Plan Need for Continued Stay: Remain at risks for inpatient hospitalization Progress Toward Problem(s) and Goals/Treatment Plan: Schizophrenia paranoid type continuous Cocaine use disorder mild Cannabis use disorder mild CBT Psychoeducation Supportive therapy and group therapy Haldol for psychosis Cogentin for EPS Trazodone for insomnia Hydroxyzine for anxiety Remeron for depression
[2018-07-16 06:16] VITALS: RESP 18
[2018-07-17 06:24] VITALS: BP 124/85; PULSE 75; TEMP 97.5
--- NOTE | 2018-07-17 10:50 | PCM.PYCHDC ---
Mental Status Examination - Mental Status Examination Orientation: Person, Place, Situation, Time Memory: Intact Mood: Neutral Affect: Constricted Speech: Soft Attention: WNL Concentration: WNL Association: WNL Fund of Knowledge: WNL Formal Thought Process: No Impairment Description of patient's judgement and insight: good, fair Psychotic Thoughts and Behaviors: denies any AVH Suicidal Ideation: No Current Homicidal Ideation?: No Discharge Summary - Discharge Note Reason for Hospitalization: Patient is a 58 years old male, who is currently unemployed and homeless came to the [facility] because of depressed mood, suicidal ideation and auditory hallucinations. Patient appeared somewhat disorganized and internally preoccupied throughout the interview. He appeared disheveled and unkempt. Patient remained a poor historian. He was superficially cooperative but guarded about the details. He reports history of multiple inpatient psychiatric hospitalizations. He was just discharged from [facility] last month. As per the patient, he stopped taking medications and became increasingly depressed and started hearing voices, he became suicidal and came to the hospital to get help. He reports depressed mood, feelings of hopelessness and helplessness, poor sleep and poor appetite. He reports paranoia and visual hallucinations. He denies any irritability, agitation and racing thoughts. Urine toxicology positive for cocaine. Consultations:: List each consultation separately and include: 1. Reason for request. 2. Findings. 3. Follow-up Summary of Hospital Course include:: 1. Description of specific treatment plan utilized for patients during their course of treatmen. 2. Summarize the time- course for resolution of acute symptoms and/or regressed behaviors. 3. Describe issues identified and worked on during hospitalization. 4. Describe medication utilized. 5. Describe medical problems identified and treated. 6. Reassessment of suicide risk Summary of Hospital Course: Patient is a 58 years old male, who is currently unemployed and homeless came to the [facility] because of depressed mood, suicidal ideation and auditory hallucinations. Patient appeared somewhat disorganized and internally preoccupied throughout the interview. He appeared disheveled and unkempt. Patient remained a poor historian. He was superficially cooperative but guarded about the details. He reports history of multiple inpatient psychiatric hospitalizations. He was just discharged from [facility] last month. As per the patient, he stopped taking medications and became increasingly depressed and started hearing voices, he became suicidal and came to the hospital to get help. He reports depressed mood, feelings of hopelessness and helplessness, poor sleep and poor appetite. He reports paranoia and visual hallucinations. He denies any irritability, agitation and racing thoughts. Urine toxicology positive for cocaine. Past medical history None reported - Final Diagnosis (DSM 5) Condition upon Discharge: GOOD DSM 5: Schizophrenia paranoid type continuous Cocaine use disorder mild Cannabis use disorder mild Disposition: HOME/ ROUTINE Follow-up Treatment Plan: Schizophrenia paranoid type continuous Cocaine use disorder mild Cannabis use disorder mild CBT Psychoeducation Supportive therapy and group therapy Haldol for psychosis Cogentin for EPS Trazodone for insomnia Hydroxyzine for anxiety Remeron for depression Prescriptions/Medication Reconciliation: Benztropine [Cogentin] 1 mg PO BID #60 tab Haloperidol [Haldol] 10 mg PO BID #60 tab Mirtazapine [Remeron] 30 mg PO HS #30 tab traZODone [Desyrel] 100 mg PO HS PRN #30 tab PRN Reason: Insomnia - Smoking Cessation Smoking Cessation Medication prescribed: No - Antipsychotic Medications Pt discharged on 2 or more routine antipsychotic medications: No
== END 2018-07-17 11:50 | disposition home or self-care (01) | DRG 885 ==
LOC: C.ER 13:00 → C.5E 15:17
PROVIDERS: ADMIT Psychiatry & Neurology Psychiatry; ATTEND Psychiatry & Neurology Psychiatry
PROC: HZ52ZZZ Individual Psychotherapy for Substance Abuse Treatment, Cognitive-Behavioral (ICD-10-PCS; principal; 2018-07-10)
PROC: HZ59ZZZ Individual Psychotherapy for Substance Abuse Treatment, Supportive (ICD-10-PCS; 2018-07-10)
PROC: HZ56ZZZ Individual Psychotherapy for Substance Abuse Treatment, Psychoeducation (ICD-10-PCS; 2018-07-10)
PROC: HZ42ZZZ Group Counseling for Substance Abuse Treatment, Cognitive-Behavioral (ICD-10-PCS; 2018-07-10)
PROC: HZ46ZZZ Group Counseling for Substance Abuse Treatment, Psychoeducation (ICD-10-PCS; 2018-07-10)
PROC: GZHZZZZ Group Psychotherapy (ICD-10-PCS; 2018-07-10)
PROC: GZ58ZZZ Individual Psychotherapy, Cognitive-Behavioral (ICD-10-PCS; 2018-07-10)
PROC: GZ56ZZZ Individual Psychotherapy, Supportive (ICD-10-PCS; 2018-07-10)
DX: F20.0 Paranoid schizophrenia (principal); R45.851 Suicidal ideations; F12.10 Cannabis abuse, uncomplicated; F14.10 Cocaine abuse, uncomplicated; F31.9 Bipolar disorder, unspecified; F41.9 Anxiety disorder, unspecified; G47.00 Insomnia, unspecified; Z59.0 Homelessness